=== PATIENT | female | born 1990 | race Caucasian/White ===

== ENCOUNTER 2017-09-29 10:31 | Emergency (ER) | payer MEDICAID, OTHER ==
[2017-09-29 10:50] VITALS: BP 140/80
--- NOTE | 2017-09-29 11:35 | UC ---
General HPI - HPI Summary HPI Summary: PT WITH 3 DAYS OF LEFT EAR PAIN - NO DRAINAGE OR HEARING LOSS. ALSO C/O SUBJECTIVE FEVER, CHILLS, OVERALL MALAISE. FEELS TIRED AND THIRSTY. IS URINATING A LOT BUT DENIES PAIN. HAS DM. TAKES METFORMIN 500MG DAILY. LAST A1C AROUND JUNE - NOT SURE WHAT IT WAS. DOES NOT CHECK SUGAR AT HOME. ATE A SMALL BOWL OF MAC AND CHEESE THIS MORNING - POC FINGER STICK GLUCOSE HERE AT IS 189 (3.5 HOURS AFTER EATING). PT HAS INTERMITTENT BLURRY ("WAVY") VISION. NO NAUSEA, CP OR SOB. 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 Hx Last Menstrual Period: 08/31/2017 Onset/Duration: Gradual Onset, Lasting Days, Still Present Timing: Constant Onset Severity: Moderate Current Severity: Moderate Pain Intensity: 6 - Allergy/Home Medications Allergies/Adverse Reactions: Allergies Allergy/AdvReac Type Severity Reaction Status Date / Time Ziprasidone [From Philip] Allergy Swelling Verified 09/29/17 10:37 Of Face,Lips,& Throat seasonal Allergy Itching Uncoded 09/29/17 10:37 PMH/Surg Hx/FS Hx/Imm Hx Endocrine History: Diabetes Psychological History: Anxiety, Depression, Bipolar Disorder Other History Of: Negative For: HIV, Hepatitis B, Hepatitis C - Surgical History Surgical History: Yes Surgery Procedure, Year, and Place: 2 past C-sections 2007 and 2009, tubal in 2011. - Family History Known Family History: Negative: Seizure Disorder, Blood Disorder - Social History Alcohol Use: None Substance Use Type: None Smoking Status (MU): Never Smoked Tobacco - Immunization History Most Recent Influenza Vaccination: none Most Recent Tetanus Shot: unable to recall Most Recent Pneumonia Vaccination: N/A Review of Systems Constitutional: Fever, Chills, Fatigue Eyes: Blurred Vision ENT: Ear Ache Cardiovascular: Negative Gastrointestinal: Negative Genitourinary: Negative Neurological: Other - DIZZY All Other Systems Reviewed And Are Negative: Yes Physical Exam Triage Information Reviewed: Yes Appearance: Well-Appearing, No Pain Distress, Well-Nourished, Obese Vital Signs: Initial Vital Signs Temp 96.6 F 01/12/18 10:39 Pulse 94 09/29/17 10:39 Resp 18 09/29/17 10:39 BP 140/80 09/29/17 10:39 Pulse Ox 98 09/29/17 10:39 Vital Signs Reviewed: Yes Eyes: Positive: Conjunctiva Clear ENT: Positive: Hearing grossly normal, Pharynx normal, TMs normal Neck: Positive: Supple, Nontender, No Lymphadenopathy Respiratory Exam: Normal Cardiovascular Exam: Normal Abdomen Description: Positive: Soft Musculoskeletal: Positive: No Edema Neurological: Positive: Alert Psychological: Positive: Normal Response To Family, Age Appropriate Behavior Skin: Negative: rashes Diagnostics - Laboratory Diagnostic Studies Completed/Ordered: POC FINGER STICK GLUCOSE 189. URINE DIP SP. GR. 1.020, 3+ BLOOD, TRACE KETONES, TRACE LYSED BLOOD Course/Dx - Differential Dx - Multi-Symptom Provider Diagnoses: UNCONTROLLED DM2 Discharge - Discharge Plan Condition: Stable Disposition: HOME Patient Education Materials: Type 2 Diabetes in Adults (ED) Referrals: Yakov Campbell MD [Medical Doctor] - 3 Days Additional Instructions: URINE TEST SHOWS SUGAR IN YOUR URINE WHICH IS CONSISTENT WITH UNCONTROLLED DIABETES. BLOOD TESTS TODAY INCLUDE CBC, CMP, TSH AND HBAIC. FOLLOW-UP WITH DR. CAMPBELL NEXT WEEK FOR MANAGEMENT. WATCH YOUR DIET. CHECK YOUR FASTING SUGAR IN THE MORNINGS AND KEEP A LOG. BRING THIS WITH YOU TO YOUR APPT. YOUR SUGAR TODAY WAS 189 - 3.5 HOURS AFTER BREAKFAST. YOU WILL NEED TO BE EVALUATED BY AN DIRECTOR MULTIPLE SCLEROSIS CENTER WELL TO LOOK FOR ANY DAMAGE TO YOUR EYES FROM THE DIABETES. GO TO THE ER WITHOUT FAIL IF YOU DEVELOP ANY WORSENING SYMPTOMS.
[2017-09-29 16:15] LABS: ABS Basophils 0 10^3/ul (0-0.2); ABS Eosinophils 0.1 10^3/ul (0-0.6); ABS Lymphocytes 2.5 10^3/ul (1.0-4.8); ABS Monocytes 0.7 10^3/ul (0-0.8); ABS Neutrophils 6.4 10^3/ul (1.5-7.7); ABS Nucleated RBC 0 10^3/ul; Hematocrit 40 % (35-47); Hemoglobin 13.4 g/dl (12.0-16.0); Lymphocyte % 25.5 % (25-47); Mean Corpuscular HGB Conc 34 g/dl (31-36); Mean Corpuscular Hemoglobin 29 pg (27-31); Mean Corpuscular Volume 86 fL (80-97); Mean Platelet Volume 9 um3 (7.4-10.4); Nucleated Red Blood Cells % 0; Platelet Count 252 10^3/ul (150-450); Red Blood Count 4.62 10^6/ul (4.0-5.4); Red Cell Distribution Width 13 % (10.5-15); White Blood Count 9.7 10^3/ul (3.5-10.8)
[2017-09-29 16:30] LABS: EGFR Non-African American 126.3 (>60)
--- NOTE | 2017-09-30 09:07 | UC ---
- Progress Note Progress Note: A1c 7.0 -- needs better control of diabetes -- advise diabetic diet and follow up with PCP this upcoming week labs show dehydration advise increase water intake rest of labs normal
== END 2017-09-29 12:08 | disposition home or self-care (01) ==
LOC: UCEAST 10:31
DX: E11.65 Type 2 diabetes mellitus with hyperglycemia (principal); H92.02 Otalgia, left ear; Z88.8 Allergy status to other drugs, medicaments and biological substances; Z91.048 Other nonmedicinal substance allergy status; Z79.84 Long term (current) use of oral hypoglycemic drugs
CPT/HCPCS: 36415; 80053; 81003; 83036; 84443; 85025; 99211; G0463

== ENCOUNTER 2018-10-29 19:18 | Emergency (ER) | payer OTHER ==
[2018-10-29 19:56] VITALS: BP 136/93
--- NOTE | 2018-10-29 20:41 | ED ---
Throat Pain/Nasal Congestion - HPI Summary HPI Summary: 28 yr old with two weeks of sore throat, nasal congestion, post nasal drip and worsening frontal sinus pressure. Symptoms are moderate. She states she has had a mild cough. She denies SOB. She denies fever. She states both ears are hurting. - History of Current Complaint Chief Complaint: UCGeneralIllness Time Seen by Provider: 10/29/18 20:33 - Allergies/Home Medications Allergies/Adverse Reactions: Allergies Allergy/AdvReac Type Severity Reaction Status Date / Time ziprasidone [From Philip] Allergy Swelling Verified 10/29/18 19:52 Of Face,Lips,& Throat seasonal Allergy Itching Uncoded 09/29/17 10:37 Home Medications: Home Medications Fluoxetine HCl [Prozac] 20 mg PO DAILY 10/29/18 [History Confirmed 10/29/18] Lurasidone(*) [Latuda] 60 mg PO DAILY 10/29/18 [History Confirmed 10/29/18] glipiZIDE [Glipizide] 5 mg PO DAILY 10/29/18 [History Confirmed 10/29/18] hydrOXYzine HCl [Hydroxyzine HCl] 10 mg PO Q6H PRN 10/29/18 [History Confirmed 10/29/18] PMH/Surg Hx/FS Hx/Imm Hx Endocrine/Hematology History: Reports: Hx Diabetes - type 2 Denies: Hx Thyroid Disease, Hx Anemia Cardiovascular History: Denies: Hx Congestive Heart Failure, Hx Deep Vein Thrombosis, Hx Hypertension , Hx Myocardial Infarction, Hx Pacemaker/ICD Respiratory History: Denies: Hx Asthma, Hx Chronic Obstructive Pulmonary Disease (COPD), Hx Lung Cancer GI History: Denies: Hx Gall Bladder Disease, Hx Gastrointestinal Bleed, Hx Ulcer, Hx Urosepsis History: Denies: Hx Kidney Stones, Hx Renal Disease Sensory History: Reports: Hx Contacts or Glasses Denies: Hx Cataracts, Hx Eye Injury, Hx Eye Prosthesis, Hx Glaucoma, Hx Legally Blind, Hx Macular Degeneration, Hx Vision Problem, Hx Deafness, Hx Hearing Aid, Hx Hearing Problem, Other Sensory Impairments Opthamlomology History: Reports: Hx Contacts or Glasses Denies: Hx Cataracts, Hx Eye Injury, Hx Eye Prosthesis, Hx Glaucoma, Hx Legally Blind, Hx Macular Degeneration, Hx Vision Problem, Other Sensory Impairments Neurological History: Reports: Hx Developmental Delay Denies: Hx Dementia, Hx Headaches, Hx Migraine, Hx Nerve Disease, Hx Seizures , Hx Spinal Cord Injury, Hx Transient Ischemic Attacks (TIA), Other Neuro Impairments/Disorders Psychiatric History: Reports: Hx Anxiety, Hx Eating Disorder - Binge eating disorder, Hx Depression, Hx Panic Disorder, Hx Post Traumatic Stress Disorder, Hx Community Mental Health Tx, Hx Bipolar Disorder, Hx Suicide Attempt - od attempt age 19, Other Psychiatric Issues/Disorders Denies: Hx Attention Deficit Hyperactivity Disorder, Hx Inpatient Treatment, Hx Schizophrenia, Hx of Violent Episodes Against Others, Hx Substance Abuse - Cancer History Hx Chemotherapy: No Hx Radiation Therapy: No Hx Palliative Cancer Treatment: No - Surgical History Surgery Procedure, Year, and Place: 2 past C-sections 2007 and 2009, tubal in 2012. Hx Anesthesia Reactions: No - Immunization History Date of Tetanus Vaccine: Unknown Date of Influenza Vaccine: Never Infectious Disease History: No Infectious Disease History: Denies: Hx Clostridium Difficile, Hx Hepatitis, Hx Human Immunodeficiency Virus (HIV), Hx of Known/Suspected MRSA, Hx Shingles, Hx Tuberculosis, Hx Known/ Suspected VRE, Hx Known/Suspected VRSA, History Other Infectious Disease, Traveled Outside the in Last 30 Days - Family History Known Family History: Positive: None - denies Negative: Seizure Disorder, Blood Disorder - Social History Occupation: Unemployed Alcohol Use: None Substance Use Type: Reports: None Smoking Status (MU): Never Smoked Tobacco Review of Systems Constitutional: Negative Positive: Sore Throat, Ear Ache, Nasal Discharge Positive: Cough All Other Systems Reviewed And Are Negative: Yes Physical Exam Triage Information Reviewed: Yes Vital Signs On Initial Exam: Initial Vitals Temp Pulse Resp BP Pulse Ox 97.2 F 94 16 136/93 99 10/29/18 19:50 10/29/18 19:50 10/29/18 19:50 10/29/18 19:50 10/29/18 19:50 Vital Signs Reviewed: Yes Appearance: Positive: Well-Appearing, No Pain Distress Skin: Positive: Warm, Skin Color Reflects Adequate Perfusion Head/Face: Positive: Normal Head/Face Inspection Eyes: Positive: EOMI ENT: Positive: Pharyngeal erythema, Nasal congestion, Nasal drainage, TM dull - bilateral, TM red, Uvula midline Neck: Positive: Nontender Respiratory/Lung Sounds: Positive: Clear to Auscultation, Breath Sounds Present Cardiovascular: Positive: RRR. Negative: Murmur Abdomen Description: Negative: Distended Musculoskeletal: Positive: Strength/ROM Intact Neurological: Positive: Sensory/Motor Intact, Alert, Oriented to Person Place, Time, CN Intact II-III Psychiatric: Positive: Normal - [place] Coma Scale Best Eye Response: 4 - Spontaneous Best Motor Response: 6 - Obeys Commands Best Verbal Response: 5 - Oriented Coma Scale Total: 15 Diagnostics - Vital Signs Vital Signs Temp Pulse Resp BP Pulse Ox 10/29/18 19:50 97.2 F 94 16 136/93 99 - Laboratory Lab Statement: Any lab studies that have been ordered have been reviewed, and results considered in the medical decision making process. EENT Course/Dx - Course Course Of Treatment: 28 yr old with otitis media, sinusitis. Rx Augmentin. - Diagnoses Provider Diagnoses: Otitis media Discharge - Sign-Out/Discharge Documenting (check all that apply): Patient Departure All imaging exams completed and their final reports reviewed: No Studies - Discharge Plan Condition: Good Disposition: HOME Prescriptions: Amoxicillin/Clavulanate TAB* [Augmentin TAB 875*] 875 mg PO BID #20 tab Patient Education Materials: Ear Infection (ED), Sinusitis (ED), Hypertension ( ED) Referrals: Elias Baker DO [Primary Care Provider] - 2 Days - Billing Disposition and Condition Condition: GOOD Disposition: Home
== END 2018-10-29 20:46 | disposition home or self-care (01) ==
LOC: UCCORT 19:18
DX: H66.93 Otitis media, unspecified, bilateral (principal); J32.9 Chronic sinusitis, unspecified; E11.9 Type 2 diabetes mellitus without complications; Z88.8 Allergy status to other drugs, medicaments and biological substances; Z91.09 Other allergy status, other than to drugs and biological substances; Z79.84 Long term (current) use of oral hypoglycemic drugs
CPT/HCPCS: 99212; G0463

== ENCOUNTER 2019-06-30 16:09 | Emergency (ER) | payer OTHER ==
--- OUTSIDE RECORDS SUMMARY | 2019-06-30 16:16 | XMS REPORT | Continuity of Care Document ---
:1990 External Reference #:[id number] Author Name Paco Garcia M.D. Address [address] [place] [address] Care Team Providers Name Role Phone Elias Baker D.O. - Family Medicine Care Team Information [facility] [phone] Problems Active Problems Provider Date Type 2 diabetes mellitus Paco Garcia M.D. Onset: 06/13/2019 Bipolar I disorder Paco Garcia M.D. Onset: 06/13/2019 Posttraumatic stress disorder Paco Garcia M.D. Onset: 06/13/2019 H/O: depression Paco Garcia M.D. Onset: 06/13/2019 Anxiety disorder Paco Garcia M.D. Onset: 06/13/2019 Social History Type Date Description Comments Sex Unknown ETOH Use Denies alcohol use Tobacco Use Start: Unknown Patient has never smoked Recreational Drug Use Denies Drug Use Smoking Status Reviewed: 06/13/19 Patient has never smoked Allergies, Adverse Reactions, Alerts Active Allergies Reaction Severity Comments Date Valproic Acid 06/13/2019 Medications Active Medications SIG Qnty Indications Ordering Provider Date Glipizide Zuleyka Kern 5mg Tablets Diclofenac Sodium Unknown 50mg Tablets Zuleyka Ramey 40mg Tablets Trulicity Imject 1.5 MG Per Unknown 1.5mg/0.5ML Week For Diabetes Solution Pen-Inject Managment Terbinafine HCL Zuleyka Kenr 1% Cream Clotrimazole LiskZuleyka 1% Cream SM Lice Killing Apply Shampoo Unknown Maximum Strength Liberally To Dry 0.33-4% Hair Allow To Shampoo Bed Worker Hair For 10 Minutes Then Lather With A Little Warm Water Then Rinse Amitriptyline HCL Zuleyka Kern 25mg Tablets Metformin HCL Take 1 Tablet By Unknown 500mg Mouth Twice Daily Tablets Before Breakfast And Supper Hydroxyzine HCL Take 1 3 Tablets Unknown 10mg By Mouth as Needed Tablets For Anxiety Depo-Provera Unknown 150mg/ml Katie Immunizations Description No Information Available Vital Signs Description No Information Available Results Description No Information Available Procedures Description No Information Available Medical Devices Description No Information Available Encounters Description No Information Available Assessments Date Code Description Provider 06/13/2019 E11.9 Type 2 diabetes mellitus without Paco Garcia M.D. complications Plan of Treatment 06/13/2019 - Paco Garcia M.D.E11.9 Type 2 diabetes mellitus without complicationsComments:Smoking can increase the risk of developing or worsening any eye related disease, as well as affect your overall health. If you are a smoker, we strongly recommend that you quit.If you are not a smoker, we strongly recommend that you do not start. You have diabetes. I do not detect any changes in both of your retinas from diabetes at this time. Proper control of your diabetes is important for the health of your eyes. Changes in your eyes from diabetes can happen without symptoms, so it is important that you have your eyes examined.Follow up:1 Year Follow Up DFE You can expect to have your eyes dilated at your next visit. If Dr. Garcia orders any additional testing, it may require extra time. We recommend that you bring sunglasses, as dilation drops often make you light sensitive until they wear off. We always recommend you bring someone to drive you home if you are uncomfortable driving with your eyes dilated. If you have any questions before your next visit, feel free to call our office at . Functional Status Description No Information Available Mental Status Description No Information Available Referrals Description No Information Available
--- OUTSIDE RECORDS SUMMARY | 2019-06-30 16:16 | XMS REPORT | Continuity of Care Document ---
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 Problems Active Problems Provider Date Adjustment disorder with mixed emotional Briseida Beaver Onset: 2018 features Derangement of knee Briseida Beaver Onset: 05/28/2019 Long-term current use of drug therapy Briseida Beaver Onset: 05/28/2019 Bipolar I disorder, most recent episode Briseida Beaver Onset: 05/28/2019 hypomanic Type II diabetes mellitus uncontrolled Briseida Beaver Onset: 05/28/2019 Social History Type Date Description Comments Sex Unknown Tobacco Use Start: Unknown Denies Cigarette Use ETOH Use Denies alcohol use Recreational Drug Use Denies Drug Use Tobacco Use Start: Unknown Non Smoker Smoking Status Reviewed: 02/28/19 Non Smoker Enjoy Exercising Enjoys exercising Sun Exposure Uses sunscreen Seat Belt/Car Seat always uses seat belt Guns in Home No Smoke Alarms Yes smoke alarm Allergies, Adverse Reactions, Alerts Active Allergies Reaction Severity Comments Date Depakote tongue swelling 03/05/2018 Medications Active Medications SIG Qnty Indications Ordering Date Provider Trulicity 1.5 mg per week 1.5ml E11.65 Rivera aTnner, 05/28/2019 1.5mg/0.5ML for management of M.D. Solution Pen-Inject diabetes Diclofenac Sodium 1 by mouth twice a 60tabs M22.2x1 Rivera Tanner, 05/28 day for knee pain M.D. 75mg Tablets DR Kelsy Paul Killing Apply Rid shampoo 236ml Rivera Tanner, 05/23/2019 Shampoo liberally to dry M.D. 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 control Latuda 1 qhs 30tabs F31.0 Rivera Tanner, 02/28/2019 40mg Tablets M.D. F43.23 Triamcinolone apply to affected 15gm L30.1 Rivera Tanner, 12/13/2018 Acetonide areas on legs for the M.D. 0.1% Cream rash, 2 times a day, discontinue when it improves One Touch Test Strips test 2 times a day 100units E11.65 Rivera Tanner, 10/15/2018 M.D. Box One Touch Lancets Test blood sugar 1-2 100units E11.65 Rivera Tanner, Box times a day M.D. Onetouch Ultra test machine as 1units E11.65 Rivera Tanner, 10/15/2018 Control directed M.D. Solution Glipizide 1 every morning for 30tabs E11.65 Rivera Tanner, 10/15/2018 5mg Tablets diabetes control M.D. Terbinafine HCL use two times a day 60units B35.3 Rivera Tanner, 2018 1% on feet x at least 3 M.D. Cream months Clotrimazole apply externally to 45gm B35.4 Rivera Tanner, 09/24/2018 1% Cream affected areas twice M.D. a day for 2 weeks or until rash has resolved: then cont 2 day after rash resolves Depo-Provera inject 150 mg 1ml Rivera Tanner, 06/22/2018 150mg/ml intramuscular once M.D. Suspension every 3 months, injection will be done by [facility] medicine Wrist Splints For CTS Wear each arm at 2units G56.03 Rivera Tanner, night M.D. Amitriptyline HCL Take 2 Tablets By 60tabs G43.C0 Rivera Tanner, 2017 25mg Mouth AT Bedtime For M.D. Tablets Headaches And Pain Metformin HCL Take 1 Tablet By 60tabs E11.65 Rivera Tanner, 03/05/2018 500mg Mouth Twice Daily M.D. Tablets Before Breakfast And Supper Hydroxyzine HCL 1-3 tabs by mouth as 90tabs Rivera Tanner, 03/04/2018 10mg needed anxiety M.D. Tablets History Medications Trulicity 0.75 mg once 1ml E11.65 Rivera Tanner, 05/17/2019 - weekly x 2 weeks, M.D. 05/28/2019 0.75mg/0.5ML if tolerated, Solution Pen-Inject increase to 1.5 mg once a week Diclofenac Sodium apply 4 g of gel 100gm M25.569 Elias Baker, 2018 - 1% to knees 2 times D.O. 05/28/2019 Gel daily (maximum: 16 g per joint per day) for pain Medications Administered in Office Medication SIG Qnty Indications Ordering Provider Date Depo Provera Injection Zuleyka Escalante P.ARobert 05/28/2019 Injection SC/Im Injections Zuleyka Escalante P.Cindy 05/28/2019 Injection Depo Provera Injection Nurse's Schedule 03/06/2019 Injection SC/Im Injections Nurse's Schedule 03/06/2019 Injection SC/Im Injections Zuleyka Escalante P.Cindy 12/13/2018 Injection SC/Im Injections Zuleyka Escalante P.ARobert 09/24/2018 Injection SC/Im Injections Zuleyka Escalante P.ARobert 06/22/2018 Injection Immunizations CPT Code Status Date Vaccine Lot # [id number] Given 05/28/2019 Influenza Virus Vaccine, Quadrivalent, Split, [id number] Preservative Free [id number] Given 06/22/2018 Influenza Virus Vaccine, Quadrivalent, Split, [id number] Preservative Free Vital Signs Date Vital Result Comment 05/28/2019 9:40am BP Systolic 106 mmHg BP Diastolic 72 mmHg Weight 281.00 lb 05/17/2019 9:28am BP Systolic 134 mmHg BP Diastolic 80 mmHg Height 65.5 inches 5'5.50" Weight 288.00 lb BMI (Body Mass Index) 47.2 kg/m2 Results Test Date Facility Test Result H/L Range Note Laboratory test finding 05/17/2019 In House Hemoglobin A1c 8.1 Laboratory test finding 02/28/2019 In House Hemoglobin A1c 7.1 Laboratory test finding 12/13/2018 In House Hemoglobin A1c 7.2 Procedures Date Code Description Status 05/28/2019 71348 SC/Im Injections Completed 05/17/2019 56945 Brief Emotional/Behav Assessment W/ Scoring Doc Per Completed Standard Inst 03/06/2019 28665 SC/Im Injections Completed 12/13/2018 57239 SC/Im Injections Completed 09/24/2018 [id number] Diabetic Foot Exam Completed Medical Devices Description No Information Available Encounters Type Date Location Provider Dx Diagnosis Office Visit 05/28/2019 Main Office Zuleyka Escalante, E11.65 Type 2 diabetes 9:20a P.A. 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 mellitus with hyperglycemia B35.3 Tinea pedis B35.4 Tinea corporis L30.1 Dyshidrosis [pompholyx] Z30.42 Encounter for surveillance of injectable contraceptive Assessments Date Code Description Provider 05/28/2019 E11.65 Type 2 diabetes mellitus with hyperglycemia Zuleyka [place] , P.A. 05/28/2019 F31.0 Bipolar disorder, current episode hypomanic Zuleyka [place], P.A. 05/28/2019 Z79.84 care home (current) use of oral hypoglycemic Zuleyka [place] , P.A. drugs 05/28/2019 M22.2x1 Bilateral knee pain Zuleyka [place], P.A. 05/28/2019 F43.23 Adjustment disorder with mixed anxiety and Zuleyka [place], P.A. depressed mood 05/28/2019 Z23 Encounter for immunization Zuleyka [place], P.A. 05/28/2019 E66.9 Obesity, unspecified Zuleyka [place], P.A. 05/28/2019 Z30.42 Encounter for surveillance of injectable Zuleyka [place], P.A. contraceptive 05/28/2019 Z71.3 Dietary counseling and surveillance Zuleyka [place], P.A. 05/28/2019 V25.09 Contraceptive Management Other Zuleyka [place], P.A. 05/17/2019 E11.65 Type 2 diabetes mellitus with hyperglycemia Zuleyka [place] , P.A. 05/17/2019 F31.0 Bipolar disorder, current episode hypomanic Zuleyka [place], P.A. 05/17/2019 G89.4 Chronic pain syndrome Zuleyka [place], P.A. 05/17/2019 F43.23 Adjustment disorder with mixed anxiety and Zuleyka [place], P.A. depressed mood 05/17/2019 Z79.84 care home (current) use of oral hypoglycemic Zuleyka [place] , P.A. drugs 05/17/2019 Z13.31 Encounter for screening for depression Zuleyka [place], P.A. 05/17/2019 Z68.42 Body mass index (BMI) 45.0-49.9, adult Zuleyka [place], P.A. 03/06/2019 Z30.013 Encounter for initial prescription of Nurse's Schedule injectable contracepti 02/28/2019 E11.65 Type 2 diabetes mellitus with hyperglycemia Zuleyka Escalante , P.A. 02/28/2019 F31.0 Bipolar disorder, current episode hypomanic Zuleyka Escalante, P.A. 02/28/2019 G89.4 Chronic pain syndrome Zuleyka Escalante, P.A. 02/28/2019 F43.23 Adjustment disorder with mixed anxiety and Zuleyka Escalante, P.A. depressed mood 02/28/2019 Z79.84 care home (current) use of oral hypoglycemic Zuleykamane Escalante , P.A. drugs 02/28/2019 Z79.899 Other meterman (current) drug therapy Zuleyka Escalante, P.A. 02/28/2019 M22.2x1 Bilateral knee pain Zuleyka Escalante, P.A. 02/28/2019 R10.84 Generalized abdominal pain Zuleyka Escalante, P.A. 12/13/2018 E11.65 Type 2 diabetes mellitus with hyperglycemia Zuleyka Escalante , P.A. 12/13/2018 B35.3 Tinea pedis Zuleyka Alemanle, P.A. 12/13/2018 B35.4 Tinea corporis Zuleyka [place], P.A. 12/13/2018 L30.1 Dyshidrosis [pompholyx] Zuleyka Escalante, P.A. 12/13/2018 Z30.42 Encounter for surveillance of injectable Zuelyka Escalante P.A. contraceptive Plan of Treatment Future Appointment(s):07/12/2019 8:00 am - Zuleyka Escalante P.ARobert at [id number] - Zuleyka Escalante P.A.E11.65 Type 2 diabetes mellitus with hyperglycemiaNew Medication:Needle For Trulicity Pen - Use 1 time a week for diabetes controlTrulicity 0.75 mg/0.5ML - 0.75 mg once weekly x 2 weeks, if tolerated, increase to 1.5 mg once a weekComments:A1C: 8.1% counseled on how to use the Trulicity pen and that would only have to use one time a week. Reviewed web page for the med and a video on the use of the pen. 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
[2019-06-30 16:25] VITALS: BP 143/85
--- NOTE | 2019-06-30 16:38 | UC ---
Abdominal Pain Female HPI - HPI Summary HPI Summary: 29-year-old female, [id number] diabetic who started having vomiting and diarrhea since last evening. She stopped vomiting approximate 2 AM and had a total of vomiting 5. She states the diarrhea has continued however it's been approximately 8 times since it started. She denies any feeling of lightheadedness or feeling like she going to pass out. She denies any urinary symptoms. No fever or chills. She has some upper abdominal soreness which she thinks is from vomiting. She has been able to take liquids and some food and retain them. - History of Current Complaint Chief Complaint: UCAbdominalPain Stated Complaint: ABDOMINAL/LOW BACK PAIN/VOMITING Time Seen by Provider: 06/30/19 16:22 Hx Obtained From: Patient Hx Last Menstrual Period: Depo ?: No Onset/Duration: Sudden Onset Severity Initially: Moderate Severity Currently: Mild Pain Intensity: 7 Location: Epigastric Radiates: No Character: Aching, Dull Aggravating Factor(s): Nothing Alleviating Factor(s): Nothing Associated Signs and Symptoms: Positive: Nausea, Vomiting, Diarrhea Allergies/Adverse Reactions: Allergies Allergy/AdvReac Type Severity Reaction Status Date / Time divalproex sodium Allergy Swelling Verified 06/30/19 16:25 [From Depakote] Of Face,Lips,& Throat ziprasidone [From Geodon] Allergy Swelling Verified 10/29/18 19:52 Of Face,Lips,& Throat seasonal Allergy Itching Uncoded 09/29/17 10:37 Home Medications: Home Medications Amitriptyline TAB* [Elavil TAB*] 25 mg PO BEDTIME 06/30/19 [History Confirmed ] Diclofenac Sodium 75 mg PO BID 06/30/19 [History Confirmed 06/30/19] Dulaglutide [Trulicity] 1.5 mg SQ WEEKLY 06/30/19 [History Confirmed 06/30/19] Medroxyprogesterone Acetate [Depo-Provera Contraceptiv] 150 mg IM SEE INSTRUCTIONS 06/30/19 [History Confirmed 06/30/19] hydrOXYzine HCl [Hydroxyzine HCl] 10 mg PO DAILY 06/30/19 [History Confirmed ] PMH/Surg Hx/FS Hx/Imm Hx Previously Healthy: Yes Endocrine History: Diabetes Psychological History: Anxiety, Bipolar Disorder Other History Of: Negative For: HIV, Hepatitis B, Hepatitis C - Surgical History Surgical History: Yes Surgery Procedure, Year, and Place: 2 past C-sections 2007 and 2009, tubal in 2012. - Family History Known Family History: Positive: None - denies Negative: Seizure Disorder, Blood Disorder - Social History Alcohol Use: None Substance Use Type: None Smoking Status (MU): Never Smoked Tobacco - Immunization History Most Recent Influenza Vaccination: none Most Recent Tetanus Shot: unable to recall Most Recent Pneumonia Vaccination: N/A Review of Systems All Other Systems Reviewed And Are Negative: Yes Gastrointestinal: Positive: Abdominal Pain - She describes abdominal pain more as abdominal soreness in the epigastric area., Vomiting, Diarrhea, Nausea Genitourinary: Positive: Negative Is Patient Immunocompromised?: No Physical Exam Triage Information Reviewed: Yes Appearance: Well-Appearing, No Pain Distress, Well-Nourished Vital Signs: Initial Vital Signs Temp 97.7 F 06/30/19 16:17 Pulse 111 06/30/19 16:17 Resp 16 06/30/19 16:17 BP 143/85 06/30/19 16:17 Pulse Ox 99 06/30/19 16:17 Vital Signs Reviewed: Yes Eyes: Positive: Conjunctiva Clear ENT: Positive: Hearing grossly normal, Pharynx normal, TMs normal, Uvula midline Neck: Positive: Supple, Nontender, No Lymphadenopathy Respiratory: Positive: Lungs clear, Normal breath sounds, No respiratory distress, No accessory muscle use Cardiovascular: Positive: RRR, No Murmur, Pulses Normal, Brisk Capillary Refill Abdomen Description: Positive: Nontender, No Organomegaly, Soft. Negative: CVA Tenderness (R), CVA Tenderness (L), Distended, Guarding, Hepatomegaly, McBurney' s Point Tenderness, Splenomegaly Bowel Sounds: Positive: Present Musculoskeletal Exam: Normal Neurological Exam: Normal Psychological Exam: Normal Skin Exam: Normal Abd Pain Female Course/Dx - Course Course Of Treatment: The patient states she's feeling much better today and is been able to retain fluids and food. I'm going to give her a prescription for Zofran for nausea. She is to continue increasing her fluid intake. She is to go to the emergency room if any increase in the abdominal discomfort, continued vomiting or any worsening of symptoms. She's follow-up with her primary care provider if no improvement in 2 or 3 days. - Differential Dx/Diagnosis Provider Diagnosis: Vomiting, Diarrhea Discharge ED - Sign-Out/Discharge Documenting (check all that apply): Patient Departure All imaging exams completed and their final reports reviewed: No Studies - Discharge Plan Condition: Good Disposition: HOME Prescriptions: Ondansetron TAB* [Zofran 4 MG Tab*] 4 mg PO Q6H PRN #15 tab PRN Reason: Nausea Patient Education Materials: Acute Nausea and Vomiting (ED) Referrals: Elias Baker DO [Primary Care Provider] - Additional Instructions: Clear liquids today, soup and crackers later today when you have no further vomiting then gradually increase to your regular diet. Avoid spicy or fatty foods today. Definite follow up with your primary care provider if no improvement in 1 day. Go to the ER if you feel like you are going to pass out or if you feel lightheaded or dizzy. - Billing Disposition and Condition Condition: GOOD Disposition: Home
== END 2019-06-30 17:00 | disposition home or self-care (01) ==
LOC: UCCORT 16:09
DX: R19.7 Diarrhea, unspecified (principal); R11.2 Nausea with vomiting, unspecified; E11.9 Type 2 diabetes mellitus without complications; F41.9 Anxiety disorder, unspecified; R10.9 Unspecified abdominal pain; Z79.899 Other long term (current) drug therapy
CPT/HCPCS: 81003; 84702; 99212; G0463

== ENCOUNTER 2019-10-30 18:12 | Emergency (ER) | payer OTHER ==
--- OUTSIDE RECORDS SUMMARY | 2019-10-30 19:07 | XMS REPORT | Continuity of Care Document ---
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 Onset: 07/30/2019 Obesity Briseida Beaver Onset: 07/30/2019 Social History Type Date Description Comments Sex Unknown Tobacco Use Reviewed: 07/03/19 Denies Cigarette Use Smoking Status Reviewed: 09/13/19 Denies Cigarette Use ETOH Use Denies alcohol use Recreational Drug Use Denies Drug Use Tobacco Use Start: Unknown Non Smoker Enjoy Exercising Enjoys exercising Sun Exposure Uses sunscreen Seat Belt/Car Seat always uses seat belt Guns in Home No Smoke Alarms Yes smoke alarm Allergies, Adverse Reactions, Alerts Active Allergies Reaction Severity Comments Date Depakote tongue swelling 03/05/2018 Medications Active Medications SIG Qnty Indications Ordering Date Provider Venlafaxine HCL 2 by mouth every Unknown 09/12/2019 day 37.5mg Tablets Famotidine take one tablet 60tabs Rivera Tanner, 07/08/2019 20mg before meals, by M.DRobert Tablets mouth twice a day for acid reflux Omeprazole Take 1 Capsule By 30caps R10.13 Rivera Tanner, 07/03/2019 40mg Mouth Every Day For M.D. Capsules DR Dulce Maria Angel For Pain; appointment needed before next refill Sucralfate take 1 tablet by 60tabs R10.13 Rivera Tanner, 07/03/2019 1gm mouth before meals M.D. Tablets and at bedtime for abdominal pain Dicyclomine HCL Take 1 Capsule By R10.13 Unknown 07/01/2019 Mouth 4 Times Daily 10mg Capsules as needed for belly pain Ondansetron HCL Take 1 Tablet By R11.0 Unknown 07/01/2019 4mg Mouth Every 6 Hours Tablets as Needed For Nausea Trulicity 1.5 mg per week for 1.5ml E11.65 Rivera Tanner, 05/28/2019 management of M.D. 1.5mg/0.5ML diabetes Solution Pen-Inject Diclofenac Sodium 1 by mouth twice a 60tabs M22.2x1 Rivera Tanner, 05/28 day for knee pain M.D. 75mg Tablets DR Weathers For Use 1 time a week 50units E11.65 Rivera Tanner, 05/17/2019 Trulicity Pen for diabetes M.D. control Latuda 1 qhs 30tabs F31.0 Rivera Tanner, 02/28/2019 40mg Tablets M.D. F43.23 Triamcinolone apply to affected 15gm L30.1 Rivera Tanner, 12/13/2018 Acetonide areas on legs for the M.D. 0.1% Cream rash, 2 times a day, discontinue when it improves One Touch Test Strips test 2 times a day 100units E11.65 Rivera Tanner, 10/15/2018 M.D. Box One Touch Lancets test blood sugar 1-2 100units E11.65 Rivera Tanner, [...] 3 months, injection will be done by [facility] Wrist Splints For CTS Wear each arm at 2units G56.03 Rivera Tanner, night M.D. Amitriptyline HCL Take 2 Tablets By 60tabs G43.C0 Rivera Tanner, 2017 25mg Mouth AT Bedtime For M.D. Tablets Headache And Pain Metformin HCL Take 1 Tablet By 60tabs E11.65 Rivera Tanner, 03/05/2018 500mg Mouth One time a day M.D. Tablets Hydroxyzine HCL 1-3 tabs by mouth as 90tabs Rivera Tanner, 03/04/2018 10mg needed anxiety M.D. 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 07/08/2019 75mg a day Tablets Rid Lice Killing Apply Rid shampoo 236ml Rivera Tanner, 05/23/2019 - Shampoo liberally to dry M.D. 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 05/28/2019 0.75mg/0.5ML if tolerated, Solution Pen-Inject increase to 1.5 mg once a week Medications Administered in Office Medication SIG Qnty Indications Ordering Provider Date SC/Im Injections Nurse's Schedule 08/27/2019 Injection SC/Im Injections Briseida Beaver 05/28/2019 Injection Depo Provera Injection Nurse's Schedule 03/06/2019 Injection SC/Im Injections Nurse's Schedule 03/06/2019 Injection SC/Im Injections Briseida Beaver 12/13/2018 Injection SC/Im Injections Briseida Beaver 09/24/2018 Injection SC/Im Injections Briseida Beaver 06/22/2018 Injection Immunizations CPT Code Status Date Vaccine Lot # [id number] Given 05/28/2019 Influenza Virus Vaccine, Quadrivalent, Split, [id number] Preservative Free [id number] Given 06/22/2018 Influenza Virus Vaccine, Quadrivalent, Split, [id number] Preservative Free Vital Signs Date Vital Result Comment 09/13/2019 10:45am BP Systolic 114 mmHg BP Diastolic 62 mmHg Height 65 inches 5'5" Weight 282.00 lb BMI (Body Mass Index) 46.9 kg/m2 BP Systolic Sitting Left Arm 98 mmHg lying down BP Diastolic Sitting Left Arm 76 mmHg lying down BP Systolic Lying Down Resting Right Arm 126 mmHg sitting BP Diastolic Lying Down Resting Right Arm 64 mmHg sitting BP Systolic Sitting Resting Right Arm 132 mmHg standing BP Diastolic Sitting Resting Right Arm 76 mmHg standing 07/03/2019 5:22pm BP Systolic 112 mmHg BP Diastolic 84 mmHg Body Temperature 98.6 F Weight 284.00 lb Results Test Acquired Facility Test Result H/L Range Note Date Laboratory 09/13/2019 [facility] Cytology <pending> test finding [phone] Laboratory 09/13/2019 In House Hemoglobin 7.0% test finding A1c Stool Occult 07/06/2019 [facility] Stool Occult SEE RESULT 1 Blood Diag [phone] Blood, Diag BELOW Laboratory 07/06/2019 [facility] Helico Pylori Negative Negative 2 test finding [phone] Antigen- Stool Laboratory 06/30/2019 [facility] Point of Care 208 mg/dL High 70-100 3 test finding [phone] Glucose Laboratory 06/30/2019 [facility] Poc Negative Negative 4 test finding [phone] , Urine Poc Urinalysis 06/30/2019 [facility] Poc Glucose, 2+ Abnormal Negative [phone] Urine Poc Bilirubin, Urine Negative Negative Poc Ketone, Urine Negative Negative Poc Specific [place], Urine 1.020 Normal 1.010-1.030 Poc Blood, Urine Trace-intact Abnormal Negative Poc pH, Urine 5.5 Normal 5-9 Poc Protein, Urine Negative Negative Poc Urobilinogen, Urine 0.2 Negative Poc Nitrite, Urine Negative Negative Poc Leukocytes, Urine Negative Negative Poc Color, Urine Yellow Poc Clarity, Urine Clear 5 Laboratory test finding 05/17/2019 In House Hemoglobin A1c 8.1 1 SEE RESULT BELOW Name: ROSALBA MORTENSEN : [address]: Zuleyka JONES Acct: [id number] Unit: [id number] AGE: 29 Location: [facility] Re07/06/19 SEX: F Status: REG REF SPEC: [id number] RHINA: 07/06/19 [facility] DR: Zuleyka JONES REQ: [id number] RECD: 07/08/19 STATUS: COMP _ SOURCE: STOOL SPDESC: ORDERED: Occult Bl, Diag COMMENTS: [id number] Procedure Result Reported Site Stool Occult Blood (1) Final 07/08/19- 2033 ML Stool Occult Blood Negative Collection Date (1) 07/06/19 Stool Occult Blood (2) Final 07/08/19- 2033 ML Stool Occult Blood Negative Collection Date (2) 07/06/19 Stool Occult Blood (3) Final 07/08/19- 2033 ML Stool Occult Blood Negative Collection Date (3) 07/06/19 * ML - Main Lab . END OF REPORT DEPARTMENT OF PATHOLOGY, [address] [place] [address] Eduar Zuleta M.D. Director [facility] # [id number] 2 Test Performed by: [place] [address] Wastewater Treatment Supervisor: Dhiraj Arevalo M.D. Ph.D.; CLIA# [id number] 3 Administrative Services Manager: [id number] 4 Administrative Services Manager: [id number] Test Disclaimer: Positive bacteria, red blood cells, white blood cells, early , low specific gravity, and other factors may cause false positive or negative results. It is recommended to retest unexpected and borderline results with a serum test when applicable. If is still suspected, please repeat test after 48 to 72 hours. 5 Administrative Services Manager: [id number] Procedures Date Code Description Status 09/13/2019 42804 Electrocardiogram Complete Completed 08/27/2019 63001 SC/Im Injections Completed 06/13/2019 124778189 Diabetic Retinal Eye Exam Completed 05/28/2019 56446 SC/Im Injections Completed 05/17/2019 82998 Brief Emotional/Behav Assessment W/ Scoring Doc Per Completed Standard Inst 09/24/2018 [id number] Diabetic Foot Exam Completed Medical Devices Description No Information Available Encounters Type Date Location Provider Dx Diagnosis Office Visit 09/13/2019 Main Office Zuleyka Escalante, E11.65 Type 2 diabetes 11:00a P.A. mellitus with hyperglycemia R07.89 Other chest pain R42 Dizziness and giddiness Z68.42 Body mass index (BMI) 45.0-49.9, adult Z00.01 Encounter for general adult medical exam w abnormal findings Z12.39 Encounter for oth screening for malignant neoplasm of breast Z12.4 Encounter for screening for malignant neoplasm of cervix Office Visit 08/27/2019 2:15p Main Office Nurse's Z30.42 Encounter for Schedule surveillance of injectable contraceptive Office Visit 07/03/2019 4:45p Main Office Ciro R10.13 Epigastric pain Herrera Stafford R11.0 Nausea E11.65 Type 2 diabetes mellitus with hyperglycemia M22.2x1 Patellofemoral disorders, right knee R19.7 Diarrhea, unspecified Office Visit 05/28/2019 9:20a Main Office Zuleyka Escalante, E11.65 Type 2 diabetes P.A. 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 09/13/2019 R07.89 Other chest pain Zuleyka Arcanum, P.A. 09/13/2019 R42 Dizziness and giddiness Zuleyka Arcanum, P.A. 09/13/2019 Z68.42 Body mass index (BMI) 45.0-49.9, adult Zuleykamane Alemanle, P.A. 09/13/2019 Z00.01 Encounter for general adult medical Zuleyka Escalante, P.A. examination with abnormal findings 09/13/2019 Z12.39 Encounter for other screening for malignant Zuleyka Arcanum , P.A. neoplasm of breast 09/13/2019 Z12.4 Encounter for screening for malignant Zulyekamane Alemanle, P.A. neoplasm of cervix 08/27/2019 Z30.42 Encounter for surveillance of injectable Nurse's Schedule contraceptive 07/03/2019 R10.13 Epigastric pain Rivera Tanner M.D. 07/03/2019 R11.0 Nausea Rivera Tanner M.D. 07/03/2019 E11.65 Type 2 diabetes mellitus with hyperglycemia Rivera Tanner M.D. 07/03/2019 M22.2x1 Bilateral knee pain Rivera Tanner M.D. 07/03/2019 R19.7 Diarrhea, unspecified Rivera Tanner M.D. 05/28/2019 E11.65 Type 2 diabetes mellitus with hyperglycemia Zuleyka Arcanum , P.A. 05/28/2019 F31.0 Bipolar disorder, current episode hypomanic Zuleyka Escalante, P.A. 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 drugs 05/28/2019 M22.2x1 Bilateral knee pain Zuleyka Arcanum, P.A. 05/28/2019 F43.23 Adjustment disorder with mixed anxiety and Zuleyka Arcanum, P.A. depressed mood 05/28/2019 Z23 Encounter for immunization Zuleyka Arcanum, P.A. 05/28/2019 E66.9 Obesity, unspecified Zuleyka Arcanum, P.A. 05/28/2019 Z30.42 Encounter for surveillance of injectable Zuleyka Arcanum, P.A. contraceptive 05/28/2019 Z71.3 Dietary counseling and surveillance Zuleyka Escalante, P.A. 05/28/2019 V25.09 Contraceptive Management Other Zuleyka Escalante, P.A. 05/17/2019 E11.65 Type 2 diabetes mellitus with hyperglycemia Zuleyka Escalante , P.A. 05/17/2019 F31.0 Bipolar disorder, current episode hypomanic Zuleyka Escalante, P.A. 05/17/2019 G89.4 Chronic pain syndrome Zuleyka Escalante, P.A. 05/17/2019 F43.23 Adjustment disorder with mixed anxiety and Zuleyka Alemanle, P.A. depressed mood 05/17/2019 Z79.84 USP (current) use of oral hypoglycemic Zuleyka Escalante , P.A. drugs 05/17/2019 Z13.31 Encounter for screening for depression Zuleyka Escalante, P.A. 05/17/2019 Z68.42 Body mass index (BMI) 45.0-49.9, adult Zuleyka Escalante, P.A. Plan of Treatment Future Appointment(s):09/15/2020 10:30 am - Letha Thomas MD at Main [id number] 2:15 pm - Nurse's Schedule at Main [id number]/13/2019 - Zuleyka Escalante, P.A.E11.65 Type 2 diabetes mellitus with hyperglycemiaReferral:Madiha Sosa MD , Cardiology/Phys/OsteoFollow up:getting microalbumin vjfbtV77.89 Other chest painReferral:Madiha Sosa MD, Cardiology/Phys/[id number] Dizziness and giddinessReferral:Madiha Sosa MD, Cardiology/Phys/DtpwmG33.42 Body mass index (BMI) 45.0-49.9, frygiE13.01 Encounter for general adult medical examination with abnormal xpcwoflmJ35.39 Encounter for other screening for malignant neoplasm of xzqskmA34.4 Encounter for screening for malignant neoplasm of cervix Functional Status Description No Information Available Mental Status Description No Information Available Referrals Refer to Reason for Referral Status Appt Date Madiha Sosa MD Pt with TYpe II diabetes x about 5 yrs, Created controlled, who complains of dizziness intermittentlly through the day, 30 seconds will pass, some days more than others. Nml SR on EKG, orthos L: 98/76, Sit: 126/64, St: 132/76. Pt has had this sxs for years (had not mentioned to us sooner) thought was vertigo. Also w c/o of intermittent LSB region cp, mild [facility] [address] [place] [address] [phone] Jessica Nur pt needs diabetic eye exam [facility] in Closed 00/ Specialty [address] [place] [address] [phone]
--- OUTSIDE RECORDS SUMMARY | 2019-10-30 19:07 | XMS REPORT | Continuity of Care Document ---
:1990 External Reference #:[id number] Author Name Briseida Beaver (transmitted by agent of provider Elias Baker) Address [address] [place] [address] Care Team Providers Name Role Phone HCP given Care Team Information Family Partner Unavailable Madiha Sosa MD - Cardiovascular Care Team Information Family Partner [phone] Disease Problems Active Problems Provider Date Type II [...] Rivera Tanner, 07/08/2019 20mg before meals, by M.D. Tablets mouth twice a day for acid reflux Omeprazole Take 1 Capsule By 30caps R10.13 Rivera Tanner, 07/03/2019 40mg Mouth Every Day For M.D. Capsules DR Dulce Mraia Angel For Pain; appointment needed before next [...] 3 months, injection will be done by [facility] Wrist Splints For CTS Wear each arm [...] tablet before 60tabs Rivera Tanner, 07/04/2019 - Pipe Threading Machine Operator meal up to 2 times M.D. 07/08/2019 75mg a day Tablets Rid Lice Killing Apply Rid shampoo 236ml Rivera Tanner, 05/23/2019 - Shampoo liberally to dry M.D. 07/02/2019 0.33-4% hair, allow to Shampoo tank refinisher hair 10 min, then lather with a little warm water than rinse Trulicity 0.75 mg once 1ml E11.65 Rivera Tanner, 05/17/2019 - weekly x 2 weeks, M.D. 05/28/2019 0.75mg/0.5ML if tolerated, Solution Pen-Inject increase to 1.5 mg once a week Medications Administered in Office Medication SIG Qnty Indications Ordering Provider Date SC/Im Injections Nurse's Schedule 08/27/2019 Injection SC/Im Injections Zuleyka Escalante P.A. 05/28/2019 Injection Depo Provera Injection Nurse's Schedule 03/06/2019 Injection SC/Im Injections Nurse's Schedule 03/06/2019 Injection SC/Im Injections Zuleyka Escalante P.ARobert 12/13/2018 Injection SC/Im Injections Zuleyka Escalante P.A. 09/24/2018 Injection SC/Im Injections Zuleyka Escalante P.ARobert 06/22/2018 Injection Immunizations CPT Code Status Date Vaccine Lot # [id number] Given 05/28/2019 Influenza Virus Vaccine, Quadrivalent, Split, [id number] Preservative Free [id number] Given 06/22/2018 Influenza Virus Vaccine, Quadrivalent, Split, [...] Result H/L Range Note Date Laboratory 09/13/2019 [facility] Cytology SEE RESULT 1 test finding [phone] BELOW Laboratory 09/13/2019 In House Hemoglobin 7.0% test finding A1c Stool Occult 07/06/2019 [facility] Stool Occult SEE RESULT 2 Blood Diag [phone] Blood, Diag BELOW Laboratory 07/06/2019 [facility] Helico Pylori Negative Negative 3 test finding [phone] Antigen- Stool Laboratory 06/30/2019 [facility] Point of Care 208 mg/dL High 70-100 4 test finding [phone] Glucose Laboratory 06/30/2019 [facility] Poc Negative Negative 5 test finding [phone] , Urine Poc Urinalysis 06/30/2019 [facility] Poc Glucose, 2+ Abnormal Negative [phone] Urine Poc Bilirubin, Urine Negative Negative Poc Ketone, Urine Negative Negative Poc Specific [place], Urine 1.020 Normal 1.010-1.030 Poc Blood, Urine Trace-intact Abnormal Negative Poc pH, Urine 5.5 Normal 5-9 Poc Protein, Urine Negative Negative Poc Urobilinogen, Urine 0.2 Negative Poc Nitrite, Urine Negative Negative Poc Leukocytes, Urine Negative Negative Poc Color, Urine Yellow Poc Clarity, Urine Clear 6 Laboratory test finding 05/17/2019 In House Hemoglobin A1c 8.1 1 SEE RESULT BELOW Name: CINDY MORTENSEN : [address]: Zuleyka JONES Acct: [id number] Unit: [id number] AGE: 29 Location: [facility] Re09/13/19 SEX: F Status: REG REF SPEC: [id number] RHINA: 09/13/19-[address]: Zuleyka JONES REQ: [id number] RECD: 09/13/19 STATUS: SOUT _ ORDERED: TP IMAGE ANALYS, HPV/Thin Prep COMMENTS: [id number] FINAL DIAGNOSIS Negative for Intraepithelial lesion or Malignancy HPV RESULTS Date Time Test Result Flag (u) Normal Range 09/13/19 1353 HPV CARRIE RFLX GE Negative Negative The high-risk HPV types detected by the assay include: 16, 18, 31, 33, 35, 39, 45, 51, 52, 56, 58, 59, 66, and 68. SPECIMEN(S) RECEIVED A. Ectocervical/Endocervical CYTOLOGY ADEQUACY Specimen Adequacy: Satisfactory of evaluation Transformation zone component identified CONTINUED ON NEXT PAGE DEPARTMENT OF PATHOLOGY, [facility] [employer] [place], [place] [address] Eduar Zuleta M.D. Director [facility] # [id number] CYTOLOGY PATIENT INFORMATION Patient Information: HPV: High risk HPV RNA testing regardless of pap results. Actual Specimen Date: 09/13/19 LMP If Unknown: Last Menstrual Period Not Given. ?: N Post Menopausal?: N Hysterectomy?: N Signed by and Reported on: TORI Akhtar (ASCP) 1209 This Pap test was evaluated with the assistance of the [employer] Test Imaging System. Due to cytologic findings at the auto driver microscope, comprehensive manual rescreening by a Bushing And Broach Operator may be required. The Pap Smear is a screening test designed to aid in the detection of premalignant and malignant conditions of the uterine cervix. It is not a diagnostic procedure and should not be used as the sole means of detecting cervical cancer. Both false- positive and false- negative reports do occur. Depending on your risk status, a Pap smear should be obtained and evaluated every 1-3 years. END OF REPORT DEPARTMENT OF PATHOLOGY, [facility] [employer] [place], [place] [address] Eduar Zuleta M.D. Director [place] # [id number] 2 SEE RESULT BELOW Name: CINDY MORT[address]EN [address] : [address]: Zuleyka JONES Acct: [id number] Unit: [id number] AGE: 29 Location: [facility] Re07/06/19 SEX: F Status: REG REF SPEC: [id number] RHINA: 07/06/[address]: Zuleyka JONES REQ: [id number] RECD: 07/08/19 STATUS: COMP _ SOURCE: STOOL SPDESC: ORDERED: Demarcus Campos COMMENTS: [id number] Procedure Result Reported Site Stool Occult Blood [...] . END OF REPORT DEPARTMENT OF PATHOLOGY, [address] [place] [address] Eduar Zuleta M.D. Director [facility] # [id number] 3 Test Performed by: [place] [address] Jockey Valet: Dhiraj Arevalo M.D. Ph.D.; CLIA# [id number] 4 Stock Unloader: [id number] 5 Stock Unloader: [id number] Test Disclaimer: Positive bacteria, red blood cells, white blood cells, early , low specific gravity, and other factors may cause false positive or negative results. It is recommended to retest unexpected and borderline results with a serum test when applicable. If is still suspected, please repeat test after 48 to 72 hours. 6 Stock Unloader: [id number] Procedures Date Code Description Status 09/13/2019 00151 Electrocardiogram Complete Completed 08/27/2019 85721 SC/Im Injections Completed 06/13/2019 382439160 Diabetic Retinal Eye Exam Completed 05/28/2019 04533 SC/Im Injections Completed 05/17/2019 85917 Brief Emotional/Behav Assessment W/ Scoring Doc Per Completed Standard Inst 09/24/2018 379718661 Diabetic Foot Exam Completed Medical Devices Description [...] for screening for malignant neoplasm of cervix E66.9 Obesity, unspecified Z79.4 nursing home (current) use of insulin Z79.84 terminal carman (current) use of oral hypoglycemic drugs Office Visit 08/27/2019 2:15p Main Office Nurse's [...] F31.0 Bipolar disorder, current episode hypomanic Z79.84 nursing home (current) use of oral hypoglycemic drugs [...] with mixed anxiety and depressed mood Z79.84 nursing home (current) use of oral hypoglycemic drugs Z13.31 Encounter for screening for depression Z68.42 Body mass index (BMI) 45.0-49.9, adult Assessments Date Code Description Provider 09/13/2019 E11.65 Type 2 diabetes mellitus with hyperglycemia Zuleyka Escalante P.ARobert 09/13/2019 R07.89 Other chest pain Zuleyka Hyde, P.A. 09/13/2019 R42 Dizziness and giddiness Zuleyka Hyde, P.A. 09/13/2019 Z68.42 Body mass index (BMI) 45.0-49.9, adult Zuleyka Hyde, P.A. 09/13/2019 Z00.01 Encounter for general adult medical Zuleyka Hyde, P.A. examination with abnormal findings 09/13/2019 Z12.39 Encounter for other screening for malignant Zuleyka Hyde , P.A. neoplasm of breast 09/13/2019 Z12.4 Encounter for screening for malignant Zuleyka Hyde, P.A. neoplasm of cervix 09/13/2019 E66.9 Obesity, unspecified Zuleyka Hyde, P.A. 09/13/2019 Z79.4 terminal carman (current) use of insulin Zuleyka Hyde, P.A. 09/13/2019 Z79.84 nursing home (current) use of oral hypoglycemic Zuleyka Hyde , P.A. drugs 08/27/2019 Z30.42 Encounter for surveillance of injectable Nurse's Schedule contraceptive 07/03/2019 R10.13 Epigastric pain Rivera Tanner M.D. 07/03/2019 R11.0 Nausea Rivera Tanner M.D. 07/03/2019 E11.65 Type 2 diabetes mellitus with hyperglycemia Rivera Tanner M.D. 07/03/2019 M22.2x1 Bilateral knee pain Rivera Tanner M.D. 07/03/2019 R19.7 Diarrhea, unspecified Rivera Tanner M.D. 05/28/2019 E11.65 Type 2 diabetes mellitus with hyperglycemia Zuleyka Hyde , P.A. 05/28/2019 F31.0 Bipolar disorder, current episode hypomanic Zuleyka Hyde, P.A. 05/28/2019 Z79.84 terminal carman (current) use of oral hypoglycemic Zuleyka Hyde , P.A. drugs 05/28/2019 M22.2x1 Bilateral knee pain Zuleyka Hyde, P.A. 05/28/2019 F43.23 Adjustment disorder with mixed anxiety and Zuleyka Hyde, P.A. depressed mood 05/28/2019 Z23 Encounter for immunization Zuleyka Hyde, P.A. 05/28/2019 E66.9 Obesity, unspecified Zuleyka Hyde, P.A. 05/28/2019 Z30.42 Encounter for surveillance of injectable Zuleyka Hyde, P.A. contraceptive 05/28/2019 Z71.3 Dietary counseling and surveillance Zuleyka Hyde, P.A. 05/28/2019 V25.09 Contraceptive Management Other Zuleyka Hyde, P.A. 05/17/2019 E11.65 Type 2 diabetes mellitus with hyperglycemia Zuleyka Hyde , P.A. 05/17/2019 F31.0 Bipolar disorder, current episode hypomanic Zuleyka Hyde, P.A. 05/17/2019 G89.4 Chronic pain syndrome Zuleyka Hyde, P.A. 05/17/2019 F43.23 Adjustment disorder with mixed anxiety and Zuleyka Hyde, P.A. depressed mood 05/17/2019 Z79.84 nursing home (current) use of oral hypoglycemic Zuleyka Hyde , P.A. drugs 05/17/2019 Z13.31 Encounter for screening for depression Zuleyka Hyde, P.A. 05/17/2019 Z68.42 Body mass index (BMI) 45.0-49.9, adult Zuleyka Hyde, P.A. Plan of Treatment Future Appointment(s):09/15/2020 10:30 am - Letha Thomas MD at Main Rrxtqh61 2:15 pm - Nurse's Schedule at Main Udmfmx0709/13/2019 - Zuleyka Hyde, P.A.E11.65 Type 2 diabetes mellitus with hyperglycemiaReferral:Madiha Sosa MD , Cardiology/Phys/OsteoFollow up:getting microalbumin bybvmZ84.89 Other chest painReferral:Madiha Sosa MD, Cardiology/Phys/SoklsW12 Dizziness and giddinessReferral:Madiha Sosa MD, Cardiology/Phys/AjzmrC56.42 Body mass index (BMI) 45.0-49.9, yuyddF60.01 Encounter for general adult medical examination with abnormal fmjsgxljE08.39 Encounter for other screening for malignant neoplasm of prdlesB67.4 Encounter for screening for malignant neoplasm of kcqpzeT95.9 Obesity, bxvkufgzbauP90.4 terminal carman (current) use of rnnfeveM14.84 nursing home (current) use of oral hypoglycemic drugs Functional Status Description No Information Available Mental Status Description No Information Available Referrals Refer to Reason for Referral Status Appt Date Madiha Sosa MD Pt with TYpe II diabetes x about 5 yrs, Sent controlled, who complains of dizziness intermittentlly through the day, 30 seconds will pass, some days more than others. Nml SR on EKG, orthos L: 98/76, Sit: 126/64, St: 132/76. Pt has had this sxs for years (had not mentioned to us sooner) thought was vertigo. Also w c/o of intermittent LSB region cp, mild Consult and Co-treatment [facility] [address] [place] [address] [phone] Jessica Nur pt needs diabetic eye exam [facility]osed [facility] [address] [place] [address] [phone]
--- OUTSIDE RECORDS SUMMARY | 2019-10-30 19:07 | XMS REPORT | Continuity of Care Document ---
:1990 External Reference #:[id number] Author Name Briseida Beaver (transmitted by agent of provider Elias Baker) Address [address] [place] [address] Care Team Providers Name Role Phone HCP given Care Team Information Captain Room Service Unavailable Madiha Sosa MD - Cardiovascular Care Team Information Captain Room Service [phone] Disease Problems Active Problems Provider Date Type [...] 3 months, injection will be done by [facility] Wrist Splints For CTS Wear [...] tablet before 60tabs Rivera Tanner, 07/04/2019 - Swabber meal up to 2 times M.D. 07/08/2019 75mg a day Tablets Rid Lice Killing Apply Rid shampoo 236ml Rivera Tanner, 05/23/2019 - Shampoo liberally to dry M.D. 07/02/2019 0.33-4% hair, allow to Shampoo perinatal coordinator hair 10 min, then lather with a [...] CPT Code Status Date Vaccine Lot # [id number] Given 05/28/2019 Influenza Virus Vaccine, Quadrivalent, Split, [id number] Preservative Free 58725 Given 06/22/2018 Influenza Virus Vaccine, Quadrivalent, Split, [...] Result H/L Range Note Date Laboratory 09/13/2019 [facility] Cytology SEE RESULT 1 test finding [phone] BELOW Laboratory 09/13/2019 In House Hemoglobin 7.0% test finding A1c Stool Occult 07/06/2019 [facility] Stool Occult SEE RESULT 2 Blood Diag [phone] Blood, Diag BELOW Laboratory 07/06/2019 [facility] Helico Pylori Negative Negative 3 test finding [phone] Antigen- Stool Laboratory 06/30/2019 [facility] Point of Care 208 mg/dL High 70-100 4 test finding [phone] Glucose Laboratory 06/30/2019 [facility] Poc Negative Negative 5 test finding [phone] , Urine Poc Urinalysis 06/30/2019 [facility] Poc Glucose, 2+ Abnormal Negative [phone] Urine Poc Bilirubin, Urine Negative Negative Poc Ketone, Urine Negative Negative Poc Specific [place], Urine 1.020 Normal 1.010-1.030 Poc Blood, Urine [...] : [address]: Zuleyka JONES Acct: [id number] Unit: [id number] AGE: 29 Location: [facility] Re09/13/19 SEX: F Status: REG REF SPEC: [id number] RHINA: 09/13/19-[address]: Zuleyka JONES REQ: [id number] RECD: 09/13/19 STATUS: SOUT _ ORDERED: TP IMAGE ANALYS, HPV/Thin Prep COMMENTS: [id number] FINAL DIAGNOSIS Negative for Intraepithelial lesion or [...] CONTINUED ON NEXT PAGE DEPARTMENT OF PATHOLOGY, [facility] [place], [place] [address] Eduar Zuleta M.D. Director [facility] # [id number] CYTOLOGY PATIENT INFORMATION Patient Information: HPV: High risk HPV RNA testing regardless of pap results. Actual Specimen Date: 09/13/19 LMP If Unknown: Last Menstrual Period Not Given. ?: N Post Menopausal?: N Hysterectomy?: N Signed by and Reported on: TORI Akhtar (ASCP) 1209 This Pap test was evaluated with the assistance of the [employer] Test Imaging System. Due to cytologic findings at the field marketing team leader microscope, comprehensive manual rescreening by a Primary Care Sales Representative may be required. The Pap Smear is [...] years. END OF REPORT DEPARTMENT OF PATHOLOGY, [facility] [place], [place] [address] Eduar Zuleta M.D. Director [facility] # [id number] 2 SEE RESULT BELOW Name: CINDY MORT[address]EN [address] : [address]: Zuleyka JONES Acct: [id number] Unit: [id number] AGE: 29 Location: [facility] Re07/06/19 SEX: F Status: REG REF SPEC: [id number] RHINA: 07/06/[address]: Zuleyka JONES REQ: [id number] RECD: 07/08/19 STATUS: COMP _ SOURCE: STOOL SPDESC: ORDERED: Demarcus Campos COMMENTS: [id number] Procedure Result Reported Site Stool Occult Blood [...] . END OF REPORT DEPARTMENT OF PATHOLOGY, [address] [place] [address] Eduar Zuleta M.D. Director [facility] # [id number] 3 Test Performed by: [place] [address] Hand Lens Polisher: Dhiraj Arevalo M.D. Ph.D.; CLIA# [id number] 4 Jewelry Estimator: [id number] 5 Jewelry Estimator: [id number] Test Disclaimer: Positive bacteria, red blood cells, white blood cells, early , low specific gravity, and other factors may cause false positive or negative results. It is recommended to retest unexpected and borderline results with a serum test when applicable. If is still suspected, please repeat test after 48 to 72 hours. 6 Jewelry Estimator: [id number] Procedures Date Code Description Status 09/13/2019 95510 Electrocardiogram Complete Completed 08/27/2019 56868 SC/Im Injections Completed 06/13/2019 885147583 Diabetic Retinal Eye Exam Completed 05/28/2019 89606 SC/Im Injections Completed 05/17/2019 78870 Brief Emotional/Behav Assessment W/ Scoring Doc Per Completed Standard Inst 09/24/2018 076148194 Diabetic Foot Exam Completed Medical Devices Description [...] neoplasm of cervix E66.9 Obesity, unspecified Z79.4 prison (current) use of insulin Z79.84 behaviorist (current) use of oral hypoglycemic drugs Office Visit 08/27/2019 2:15p Main Office Nurse's Z30.42 Encounter for Schedule surveillance of injectable contraceptive Office Visit 07/03/2019 4:45p Main Office Ciro, R10.13 Epigastric pain Herrera Stafford R11.0 Nausea E11.65 Type 2 diabetes mellitus with hyperglycemia M22.2x1 Patellofemoral disorders, right knee R19.7 Diarrhea, unspecified Office Visit 05/28/2019 9:20a Main Office Zuleyka Escalante, E11.65 Type 2 diabetes P.A. mellitus with hyperglycemia F31.0 Bipolar disorder, current episode hypomanic Z79.84 prison (current) use of oral hypoglycemic drugs M22.2x1 [...] with mixed anxiety and depressed mood Z79.84 prison (current) use of oral hypoglycemic drugs Z13.31 Encounter for screening for depression Z68.42 Body mass index (BMI) 45.0-49.9, adult Assessments Date Code Description Provider 09/13/2019 E11.65 Type 2 diabetes mellitus with hyperglycemia Zuleyka Escalante P.ARobert 09/13/2019 R07.89 Other chest pain Zuleyka [place], P.A. 09/13/2019 R42 Dizziness and giddiness Zuleyka [place], P.A. 09/13/2019 Z68.42 Body mass index (BMI) 45.0-49.9, adult Zuleyka [place], P.A. 09/13/2019 Z00.01 Encounter for general adult medical Zuleyka [place], P.A. examination with abnormal findings 09/13/2019 Z12.39 Encounter for other screening for malignant Zuleyka [place] , P.A. neoplasm of breast 09/13/2019 Z12.4 Encounter for screening for malignant Zuleyka [place], P.A. neoplasm of cervix 09/13/2019 E66.9 Obesity, unspecified Zuleyka [place], P.A. 09/13/2019 Z79.4 behaviorist (current) use of insulin Zuleyka [place], P.A. 09/13/2019 Z79.84 prison (current) use of oral hypoglycemic Zuleyka [place] , P.A. drugs 08/27/2019 Z30.42 Encounter for surveillance of injectable Nurse's Schedule contraceptive 07/03/2019 R10.13 Epigastric pain Rivera Tanner M.D. 07/03/2019 R11.0 Nausea Rivera Tanner M.D. 07/03/2019 E11.65 Type 2 diabetes mellitus with hyperglycemia Rivera Tanner M.D. 07/03/2019 M22.2x1 Bilateral knee pain Rivera Tanner M.D. 07/03/2019 R19.7 Diarrhea, unspecified Rivera Tanner M.D. 05/28/2019 E11.65 Type 2 diabetes mellitus with hyperglycemia Zuleyka [place] , P.A. 05/28/2019 F31.0 Bipolar disorder, current episode hypomanic Zuleyka [place], P.A. 05/28/2019 Z79.84 behaviorist (current) use of oral hypoglycemic Zuleyka [place] , P.A. drugs 05/28/2019 M22.2x1 Bilateral knee pain Zuleyka [place], P.A. 05/28/2019 F43.23 Adjustment disorder with mixed anxiety and Zuleyka [place], P.A. depressed mood 05/28/2019 Z23 Encounter for immunization Zuleyka [place], P.A. 05/28/2019 E66.9 Obesity, unspecified Zuleyka [place], P.A. 05/28/2019 Z30.42 Encounter for surveillance of injectable Zuleyka [place], P.A. contraceptive 05/28/2019 Z71.3 Dietary counseling and surveillance Zuleyka Escalante, P.A. 05/28/2019 V25.09 Contraceptive Management Other Zuleyka Escalante, P.A. 05/17/2019 E11.65 Type 2 diabetes mellitus with hyperglycemia Zuleyka [place] , P.A. 05/17/2019 F31.0 Bipolar disorder, current episode hypomanic Zuleyka [place], P.A. 05/17/2019 G89.4 Chronic pain syndrome Zuleyka [place], P.A. 05/17/2019 F43.23 Adjustment disorder with mixed anxiety and Zuleyka [place], P.A. depressed mood 05/17/2019 Z79.84 prison (current) use of oral hypoglycemic Zuleyka [place] , P.A. drugs 05/17/2019 Z13.31 Encounter for screening for depression Zuleyka [place], P.A. 05/17/2019 Z68.42 Body mass index (BMI) 45.0-49.9, adult Zuleyka [place], P.A. Plan of Treatment Future Appointment(s):09/15/2020 10:30 am - Letha Thomas MD at Main Bytjtl23 2:15 pm - Nurse's Schedule at Main Omeonl6302/28/2019 - Zuleyka Escalante, P.A.E11.65 Type 2 diabetes mellitus with hyperglycemiaFollow up:A1C 7.1%: well qemfnfumicS70.0 Bipolar disorder, current episode hypomanicNew Medication: Latuda 40 mg - 1 qhsComments:As pt feels comfortable here and appears stable with her psychiatric concerns, I agreed to manage ptat this time. She stated understanding that if issues became more complicated again that we might have to return to [facility]. Overall pt appears to be doing well.G89.4 Chronic pain syndromeFollow up:alternative if we cannot cover the Diclofenac gel is: Aspercreme with aspirin in it (not lidocaine)either the brand name or the uiteqgwY73.23 Adjustment disorder with mixed anxiety and depressed moodNew Medication:Latuda 40 mg - 1 qhsComments:Will likely need a PA for the Latuda which she has taken for while but other another fqhaimydnjG62.84 behaviorist ( current) use of oral hypoglycemic feaoaY55.899 Other install technician (current) drug zlgrckvS29.2x1 Bilateral knee painComments:discussed that likely is general pain from chr excess pressure on knees, pt agreed and weight loss ozwhhpzvvmP24.84 Generalized abdominal painComments:some does seem to be epigastric, will start omeprazole and see if changesFollow up:will monitor, no pain today, return when active Functional Status Description No Information Available Mental [...] LSB region cp, mild Consult and Co-treatment [facility] [address] [place] [address] [phone] Jessica Nur pt needs diabetic eye exam [facility] [address] [place] [address] [phone]
--- OUTSIDE RECORDS SUMMARY | 2019-10-30 19:07 | XMS REPORT | Continuity of Care Document ---
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 Wrist Splints For CTS Wear each [...] tablet before 60tabs Rivera Tanner, 07/04/2019 - Slip Filler meal up to 2 times M.D. 07/08/2019 75mg a day Tablets Rid Lice Killing Apply Rid shampoo 236ml Rivera Tanner, 05/23/2019 - Shampoo liberally to dry M.D. 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 hair 10 min, then lather with a [...] CPT Code Status Date Vaccine Lot # [id number] Given 05/28/2019 Influenza Virus Vaccine, Quadrivalent, Split, 24K35 Preservative Free 54226 Given 06/22/2018 Influenza Virus Vaccine, Quadrivalent, Split, [...] Result H/L Range Note Date Laboratory 09/13/2019 [facility] Cytology SEE RESULT 1 test finding [phone] BELOW Laboratory 09/13/2019 In House Hemoglobin 7.0% test finding A1c Stool Occult 07/06/2019 [facility] Stool Occult SEE RESULT 2 Blood Diag [phone] Blood, Diag BELOW Laboratory 07/06/2019 [facility] Helico Pylori Negative Negative 3 test finding [phone] Antigen- Stool Laboratory 06/30/2019 [facility] Point of Care 208 mg/dL High 70-100 4 test finding [phone] Glucose Laboratory 06/30/2019 [facility] Poc Negative Negative 5 test finding [phone] , Urine Poc Urinalysis 06/30/2019 [facility] Poc Glucose, 2+ Abnormal Negative [phone] Urine Poc Bilirubin, Urine Negative Negative Poc Ketone, Urine Negative Negative Poc Specific [place], Urine 1.020 Normal 1.010-1.030 Poc Blood, Urine [...] : [address]: Zuleyka JONES Acct: [id number] Unit: [id number] AGE: 29 Location: [facility] Re09/13/19 SEX: F Status: REG REF SPEC: [id number] RHINA: 09/13/19-[address]: Zuleyka JONES REQ: [id number] RECD: 09/13/19 STATUS: SOUT _ ORDERED: TP IMAGE ANALYS, HPV/Thin Prep COMMENTS: [id number] FINAL DIAGNOSIS Negative for Intraepithelial lesion or [...] CONTINUED ON NEXT PAGE DEPARTMENT OF PATHOLOGY, [facility] [employer] [place], [place] [address] Eduar Zuleta M.D. Director [facility] # [id number] CYTOLOGY PATIENT INFORMATION Patient Information: HPV: High risk HPV RNA testing regardless of pap results. Actual Specimen Date: 09/13/19 LMP If Unknown: Last Menstrual Period Not Given. ?: N Post Menopausal?: N Hysterectomy?: N Signed by and Reported on: TORI Akhtar (ASCP) 1206 This Pap test was evaluated with the assistance of the onefinestayp Test Imaging System. Due to cytologic findings at the digital circuit designer microscope, comprehensive manual rescreening by a Assurance Senior Manager Insurance may be required. The Pap Smear is [...] years. END OF REPORT DEPARTMENT OF PATHOLOGY, [facility] [employer] [place], [place] [address] Eduar Zuleta M.D. Director [facility] # [id number] 2 SEE RESULT BELOW Name: [address] : [address]: Zuleyka JONES Acct: [id number] Unit: [id number] AGE: 29 Location: [facility] Re07/06/19 SEX: F Status: REG REF SPEC: [id number] RHINA: 07/06/[address]: Zuleyka JONES REQ: [id number] RECD: 07/08/19 STATUS: COMP _ SOURCE: STOOL SPDESC: ORDERED: Demarcus Campos COMMENTS: [id number] Procedure Result Reported Site Stool Occult Blood [...] . END OF REPORT DEPARTMENT OF PATHOLOGY, [address] [place] [address] Eduar Zuleta M.D. Director [facility] # [id number] 3 Test Performed by: [place] [address] Ekg Tech: Dhiraj Arevalo M.D. Ph.D.; CLIA# [id number] 4 Microsoft Infrastructure Consultant: [id number] 5 [employer] Infrastructure Consultant: [id number] Test Disclaimer: Positive bacteria, red blood cells, white blood cells, early , low specific gravity, and other factors may cause false positive or negative results. It is recommended to retest unexpected and borderline results with a serum test when applicable. If is still suspected, please repeat test after 48 to 72 hours. 6 [employer] Infrastructure Consultant: [id number] Procedures Date Code Description Status 09/13/2019 80720 Electrocardiogram Complete Completed 08/27/2019 97770 SC/Im Injections Completed 06/13/2019 858408253 Diabetic Retinal Eye Exam Completed 05/28/2019 83783 SC/Im Injections Completed 05/17/2019 98798 Brief Emotional/Behav Assessment W/ Scoring Doc Per Completed Standard Inst 09/24/2018 948472209 Diabetic Foot Exam Completed Medical Devices Description [...] neoplasm of cervix E66.9 Obesity, unspecified Z79.4 care home (current) use of insulin Z79.84 termination clerk (current) use of oral hypoglycemic drugs Office [...] with mixed anxiety and depressed mood Z79.84 care home (current) use of oral hypoglycemic drugs Z13.31 Encounter for screening for depression Z68.42 Body mass index (BMI) 45.0-49.9, adult Assessments Date Code Description Provider 09/13/2019 E11.65 Type 2 diabetes mellitus with hyperglycemia Zuleyka Escalante P.ARobert 09/13/2019 R07.89 Other chest pain Zuleyka Lotus, P.A. 09/13/2019 R42 Dizziness and giddiness Zuleyka Lotus, P.A. 09/13/2019 Z68.42 Body mass index (BMI) 45.0-49.9, adult Zuleyka Lotus, P.A. 09/13/2019 Z00.01 Encounter for general adult medical Zuleyka Lotus, P.A. examination with abnormal findings 09/13/2019 Z12.39 Encounter for other screening for malignant Zuleyka Lotus , P.A. neoplasm of breast 09/13/2019 Z12.4 Encounter for screening for malignant Zuleyka Lotus, P.A. neoplasm of cervix 09/13/2019 E66.9 Obesity, unspecified Zuleyka Lotus, P.A. 09/13/2019 Z79.4 termination clerk (current) use of insulin Zuleyka Lotus, P.A. 09/13/2019 Z79.84 care home (current) use of oral hypoglycemic Zuleyka Lotus , P.A. drugs 08/27/2019 Z30.42 Encounter for surveillance of injectable Nurse's Schedule contraceptive 07/03/2019 R10.13 Epigastric pain Rivera Tanner M.D. 07/03/2019 R11.0 Nausea Rivera Tanner M.D. 07/03/2019 E11.65 Type 2 diabetes mellitus with hyperglycemia Rivera Tanner M.D. 07/03/2019 M22.2x1 Bilateral knee pain Rivera Tanner M.D. 07/03/2019 R19.7 Diarrhea, unspecified Rivera Tanner M.D. 05/28/2019 E11.65 Type 2 diabetes mellitus with hyperglycemia Zuleyka Lotus , P.A. 05/28/2019 F31.0 Bipolar disorder, current episode hypomanic Zuleyka Lotus, P.A. 05/28/2019 Z79.84 termination clerk (current) use of oral hypoglycemic Zuleyka Lotus , P.A. drugs 05/28/2019 M22.2x1 Bilateral knee pain Zuleyka Lotus, P.A. 05/28/2019 F43.23 Adjustment disorder with mixed anxiety and Zuleyka Lotus, P.A. depressed mood 05/28/2019 Z23 Encounter for immunization Zuleyka Lotus, P.A. 05/28/2019 E66.9 Obesity, unspecified Zuleyka Lotus, P.A. 05/28/2019 Z30.42 Encounter for surveillance of injectable Zuleyka Lotus, P.A. contraceptive 05/28/2019 Z71.3 Dietary counseling and surveillance Zuleyka Lotus, P.A. 05/28/2019 V25.09 Contraceptive Management Other Zuleyka Lotus, P.A. 05/17/2019 E11.65 Type 2 diabetes mellitus with hyperglycemia Zuleyka Lotus , P.A. 05/17/2019 F31.0 Bipolar disorder, current episode hypomanic Zuleyka Lotus, P.A. 05/17/2019 G89.4 Chronic pain syndrome Zuleyka Lotus, P.A. 05/17/2019 F43.23 Adjustment disorder with mixed anxiety and Zuleyka Lotus, P.A. depressed mood 05/17/2019 Z79.84 care home (current) use of oral hypoglycemic Zuleyka Lotus , P.A. drugs 05/17/2019 Z13.31 Encounter for screening for depression Zuleyka Lotus, P.A. 05/17/2019 Z68.42 Body mass index (BMI) 45.0-49.9, adult Zuleyka Lotus, P.A. Plan of Treatment Future Appointment(s):09/15/2020 10:30 am - Letha Thomas MD at Main Ajoutu22 2:15 pm - Nurse's Schedule at Main Iifsal0309/13/2019 - Zuleyka Lotus, P.A.E11.65 Type 2 diabetes mellitus with hyperglycemiaReferral:Madiha Sosa MD , Cardiology/Phys/OsteoFollow up:getting microalbumin pzuijZ10.89 Other chest painReferral:Madiha Sosa MD, Cardiology/Phys/LpqapQ50 Dizziness and giddinessReferral:Madiha Sosa MD, Cardiology/Phys/AaacbQ59.42 Body mass index (BMI) 45.0-49.9, rozdbF16.01 Encounter for general adult medical examination with abnormal lxrmdgypW27.39 Encounter for other screening for malignant neoplasm of fmvalsP99.4 Encounter for screening for malignant neoplasm of vljanrQ94.9 Obesity, rojnwwxqlwsW35.4 termination clerk (current) use of vbhhhbaK20.84 care home (current) use of oral hypoglycemic [...] LSB region cp, mild Consult and Co-treatment [facility] [address] [place] [address] [phone] Jessica Nur pt needs diabetic eye exam Assume Management in Closed Specialty [address] [place] [address] [phone]
--- OUTSIDE RECORDS SUMMARY | 2019-10-30 19:07 | XMS REPORT | Continuity of Care Document ---
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 07/08/2019 75mg a day Tablets Rid Lice Killing Apply Rid shampoo 236ml Rivera Tanner, 05/23/2019 - Shampoo liberally to dry M.D. 07/02/2019 0.33-4% hair, allow to Shampoo health technician hearing hair 10 min, then lather with a [...] CPT Code Status Date Vaccine Lot # 53791 Given 05/28/2019 Influenza Virus Vaccine, Quadrivalent, Split, 24K35 Preservative Free 67727 Given 06/22/2018 Influenza Virus Vaccine, Quadrivalent, Split, [...] Result H/L Range Note Date Laboratory 09/13/2019 [facility] Cytology SEE RESULT 1 test finding [phone] BELOW Laboratory 09/13/2019 In House Hemoglobin 7.0% test finding A1c Stool Occult 07/06/2019 [facility] Stool Occult SEE RESULT 2 Blood Diag [phone] Blood, Diag BELOW Laboratory 07/06/2019 [facility] Helico Pylori Negative Negative 3 test finding [phone] Antigen- Stool Laboratory 06/30/2019 [facility] Point of Care 208 mg/dL High 70-100 4 test finding [phone] Glucose Laboratory 06/30/2019 [facility] Poc Negative Negative 5 test finding [phone] , Urine Poc Urinalysis 06/30/2019 [facility] Poc Glucose, 2+ Abnormal Negative [phone] Urine Poc Bilirubin, Urine Negative Negative Poc Ketone, Urine Negative Negative Poc Specific [place], Urine 1.020 Normal 1.010-1.030 Poc Blood, Urine [...] : [address]: Zuleyka JONES Acct: [id number] Unit: [id number] AGE: 29 Location: [facility] Re09/13/19 SEX: F Status: REG REF SPEC: [id number] RHINA: 09/13/19-[address]: Zuleyka JONES REQ: [id number] RECD: 09/13/19 STATUS: SOUT _ ORDERED: TP IMAGE ANALYS, HPV/Thin Prep COMMENTS: [id number] FINAL DIAGNOSIS Negative for Intraepithelial lesion or [...] ON NEXT PAGE DEPARTMENT OF PATHOLOGY, [facility] [employer] [place], [place] [address] Eduar Zuleta M.D. Director [facility] # [id number] CYTOLOGY PATIENT INFORMATION Patient Information: HPV: High risk HPV RNA testing regardless of pap results. Actual Specimen Date: 09/13/19 LMP If Unknown: Last Menstrual Period Not Given. ?: N Post Menopausal?: N Hysterectomy?: N Signed by and Reported on: TORI Akhtar (ASCP) 1203 This Pap test was evaluated with the assistance of the [employer] Wind Powerp Test Imaging System. Due to cytologic findings at the director of home care hospice microscope, comprehensive manual rescreening by a Guide Dog Mobility Instructor may be required. The Pap Smear is [...] END OF REPORT DEPARTMENT OF PATHOLOGY, [facility] [employer] [place], [place] [address] Eduar Zuleta M.D. Director [facility] # [id number] 2 SEE RESULT BELOW Name: [address]INDY [address] : [address]: Zuleyka JONES Acct: [id number] Unit: [id number] AGE: 29 Location: [facility] Re07/06/19 SEX: F Status: REG REF SPEC: [id number] RHINA: 07/06/[address]: Zuleyka JONES REQ: [id number] RECD: 07/08/19 STATUS: COMP _ SOURCE: STOOL SPDESC: ORDERED: Demarcus Campos COMMENTS: [id number] Procedure Result Reported Site Stool Occult Blood [...] . END OF REPORT DEPARTMENT OF PATHOLOGY, [address] [place] [address] Eduar Zuleta M.D. Director [facility] # [id number] 3 Test Performed by: [place] [address] Box Bender: Dhiraj Arevalo M.D. Ph.D.; CLIA# [id number] 4 Emt Intermediate: [id number] 5 Emt Intermediate: [id number] Test Disclaimer: Positive bacteria, red blood cells, white blood cells, early , low specific gravity, and other factors may cause false positive or negative results. It is recommended to retest unexpected and borderline results with a serum test when applicable. If is still suspected, please repeat test after 48 to 72 hours. 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 09/13/2019 R42 Dizziness and giddiness Zuleyka [place], P.A. 09/13/2019 Z68.42 Body mass index (BMI) 45.0-49.9, adult Zuleyka [place], P.A. 09/13/2019 Z00.01 Encounter for general adult medical Zuleyka [place], P.A. examination with abnormal findings 09/13/2019 Z12.39 Encounter for other screening for malignant Zuleyka [place] , P.A. neoplasm of breast 09/13/2019 Z12.4 Encounter for screening for malignant Zuleyka [place], P.A. neoplasm of cervix 09/13/2019 E66.9 Obesity, unspecified Zuleyka [place], P.A. 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 09/13/2019 Z79.84 longterm (current) use of oral hypoglycemic Zuleyka [place] , P.A. drugs 08/27/2019 Z30.42 Encounter for surveillance of injectable Nurse's Schedule contraceptive 07/03/2019 R10.13 Epigastric pain Rivera Tanner M.D. 07/03/2019 R11.0 Nausea Rivera Tanner M.D. 07/03/2019 E11.65 Type 2 diabetes mellitus with hyperglycemia Rivera Tanner M.D. 07/03/2019 M22.2x1 Bilateral knee pain Rivera Tanner M.D. 07/03/2019 R19.7 Diarrhea, unspecified Rivera Tanner M.D. 05/28/2019 E11.65 Type 2 diabetes mellitus with hyperglycemia Zuleyka [place] , P.A. 05/28/2019 F31.0 Bipolar disorder, current episode hypomanic Zuleyka [place], P.A. 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 drugs 05/28/2019 M22.2x1 Bilateral knee pain Zuleyka [place], P.A. 05/28/2019 F43.23 Adjustment disorder with mixed anxiety and Zuleyka [place], P.A. depressed mood 05/28/2019 Z23 Encounter for immunization Zuleyka [place], P.A. 05/28/2019 E66.9 Obesity, unspecified Zuleyka [place], P.A. 05/28/2019 Z30.42 Encounter for surveillance of injectable Zuleyka [place], P.A. contraceptive 05/28/2019 Z71.3 Dietary counseling and surveillance Zuleyka Escalante, P.A. 05/28/2019 V25.09 Contraceptive Management Other Zuleyka Escalante, P.A. 05/17/2019 E11.65 Type 2 diabetes mellitus with hyperglycemia Zuleyka [place] , P.A. 05/17/2019 F31.0 Bipolar disorder, current episode hypomanic Zuleyka [place], P.A. 05/17/2019 G89.4 Chronic pain syndrome Zuleyka [place], P.A. 05/17/2019 F43.23 Adjustment disorder with mixed anxiety and Zuleyka [place], P.A. depressed mood 05/17/2019 Z79.84 longterm (current) use of oral hypoglycemic Zuleyka [place] , P.A. drugs 05/17/2019 Z13.31 Encounter for screening for depression Zuleyka [place], P.A. 05/17/2019 Z68.42 Body mass index (BMI) 45.0-49.9, adult Zuleyka [place], P.A. Plan of Treatment Future Appointment(s):09/15/2020 10:30 am - Letha Thomas MD at Main Baxcsh41 2:15 pm - Nurse's Schedule at Main Zcxihb1102/28/2019 - Zuleyka Escalante, P.A.E11.65 Type 2 diabetes mellitus with hyperglycemiaFollow up:A1C 7.1%: well lcgnzpiopwB78.0 Bipolar disorder, current episode hypomanicNew Medication: Latuda 40 mg - 1 qhsComments:As pt feels comfortable here and appears stable with her psychiatric concerns, I agreed to manage ptat this time. She stated understanding that if issues became more complicated again that we might have to return to COUNTS [facility] BEDS AT [facility]. Overall pt appears to be doing well.G89.4 Chronic pain syndromeFollow up:alternative if we cannot cover the Diclofenac gel is: Aspercreme with aspirin in it (not lidocaine)either the brand name or the bvgjuboV62.23 Adjustment disorder with mixed anxiety and depressed moodNew Medication:Latuda 40 mg - 1 qhsComments:Will likely need a PA for the Latuda which she has taken for while but other another yqfplxrpsnG38.84 vermin exterminator ( current) use of oral hypoglycemic cglvxZ43.899 Other long chain quiller tender (current) drug bfvfyfjG84.2x1 Bilateral knee painComments:discussed that likely is general pain from chr excess pressure on knees, pt agreed and weight loss sjsarifotkE01.84 Generalized abdominal painComments:some does seem to be [...] LSB region cp, mild Consult and Co-treatment [facility] [address] [place] [address] [phone] Jessica Nur pt needs diabetic eye exam Assume Management in Closed Specialty [address] [place] [address] [phone]
--- OUTSIDE RECORDS SUMMARY | 2019-10-30 19:07 | XMS REPORT ---
:1990 Author Organization [facility] Care Team Providers Name Role Phone Susana Washington Primary Care Physician Unavailable Allergies, Adverse Reactions, Alerts Allergy Code CodeSystem Reaction Severity Criticality Status Start Substance Date Moderate Medications Medication Medication Medication Start Stop Route Dose Status Fill Code CodeSystem Date Date Instructions fluoxetine 952363 RxNorm 2018-12 oral 40 mg 1 active Take 1 -30 7-29 capsule capsule once once a a day for 30 day day(s) Latuda 5171313 RxNorm 2018-12 oral 60 mg active for 30 -30 7-29 tablet day(s) hydroxyzine 331342 RxNorm 2018-12 oral 25 mg 1 active Take 1 tablet HCl -30 7-29 tablet four times a four day as needed times a for 30 day(s) day Problems Problem Name Code CodeSystem Alternate Alternate Start End Status Narrative Code CodeSystem Date Date Bipolar 32972591 SNOMED-CT Active affective 3-22 disorder, unspecified Bipolar 45555092 SNOMED-CT Active affective 3-22 disorder, unspecified Bipolar 23613258 SNOMED-CT Active affective 3-22 disorder, unspecified Social 16979838 SNOMED-CT Active phobia, 4-02 unspecified 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, unspecified Post-traumat 10506148 SNOMED-CT 0 Active ic stress 4-02 disorder, unspecified Bipolar 20705942 SNOMED-CT Active affective 3-22 disorder, unspecified Social 37882595 SNOMED-CT 0 Active phobia, 4-02 unspecified Bipolar 37144585 SNOMED-CT 0 Active affective 3-22 disorder, unspecified Relevant diagnostic tests/laboratory data Narrative No Information Procedures Procedure Code CodeSystem Target Date of Status Service Device Device Device Name Site Procedure Delivery Code Name UID Location Psychotherap 604143 SNOMED-CT () 2019-08-12 complete Mental y, 45 04 d Health- minutes with [place] patient [address], [id number] Office [place] 973096 SNOMED-CT () 2019-08-09 complete Mental other 7 d Health- outpatient [place] visit for [address], [facility], established 476299325 patient, [id number] which requires at least 2 of these 3 crews components: An expanded problem focused history; An expanded problem focused examination; Medical decision making of low Office or 763770 SNOMED-CT () 2019-07-10 complete Mental other 8 d Health- outpatient Neftali visit for [address], [facility], established 155634019 patient, [id number] which requires at least 2 of these 3 crews components: A detailed history; A detailed examination; Medical decision making of moderate complexity. Counseling and/o SNOMED-CT () 2019-01-15 complete Mental d Health- [address], [id number] 1238005627 SNOMED-CT () 2019-09-20 complete Mental d Health- [place], [id number] SNOMED-CT () 2019-01-15 complete Mental d Health- [address], [id number] SNOMED-CT () 2019-01-15 complete Mental d Health- [place], [id number] [id number] SNOMED-CT () 2019-01-15 complete Mental d Health- [address], [address]121625[address] 6459242695 SNOMED-CT () 2019-01-15 complete Mental d Health- [address], 326[address]173 1390817119 SNOMED-CT () 2019-01-15 complete Mental d Health- [address], [id number] 0118339331 SNOMED-CT () 2019-01-15 complete Mental d [facility] [address] [place], [place], [id number] Encounters/Encounter Diagnoses Encounter Name Encounter Diagnosis Diagnosis Diagnosis Date of Service Code Code Name CodeSystem Diagnosis Delivery Location [facility] [address] [id number] 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
[2019-10-30 19:45] VITALS: BP 145/83
[2019-10-30 20:06] LABS: Influenza B Molecular POSITIVE (Negative)
--- NOTE | 2019-10-30 20:27 | UC ---
FLU HPI - HPI Summary HPI Summary: 29-year-old female comes in with a chief complaint influenza-like symptoms for 4 days. She has had chills headache body aches and felt ill. Ibuprofen has helped with her symptoms. Also has a cough and a sore throat. - History of Current Complaint Chief Complaint: UCGeneralIllness Stated Complaint: ST/COUGH Time Seen by Provider: 10/30/19 20:10 Hx Last Menstrual Period: Depo Provera Pain Intensity: 0 - Allergy/Home Medications Allergies/Adverse Reactions: Allergies Allergy/AdvReac Type Severity Reaction Status Date / Time divalproex sodium Allergy Swelling Verified 10/30/19 19:45 [From Depakote] Of Face,Lips,& Throat ziprasidone [From Geodon] Allergy Swelling Verified 10/30/19 19:45 Of Face,Lips,& Throat seasonal Allergy Itching Uncoded 10/30/19 19:45 Home Medications: Home Medications Gabapentin 300 mg PO TID 10/30/19 [History Confirmed 10/30/19] Venlafaxine HCl 75 mg PO DAILY 10/30/19 [History Confirmed 10/30/19] Venlafaxine HCl [Effexor XR-] 37.5 mg PO DAILY 10/30/19 [History Confirmed 10/30] PMH/Surg Hx/FS Hx/Imm Hx Previously Healthy: Yes Endocrine History: Diabetes Cardiovascular History: Hypertension Other History Of: Negative For: HIV, Hepatitis B, Hepatitis C - Surgical History Surgical History: Yes Surgery Procedure, Year, and Place: 2 past C-sections 2007 and 2009, tubal in 2011. - Family History Known Family History: Positive: None - denies Negative: Seizure Disorder, Blood Disorder - Social History Alcohol Use: None Substance Use Type: None Smoking Status (MU): Never Smoked Tobacco - Immunization History Most Recent Influenza Vaccination: none Most Recent Tetanus Shot: unable to recall Most Recent Pneumonia Vaccination: N/A Review of Systems All Other Systems Reviewed And Are Negative: Yes Constitutional: Positive: Chills, Other - SEE HPI Skin: Positive: Negative Eyes: Positive: Negative ENT: Positive: Sore Throat, Nasal Discharge Respiratory: Positive: Cough, Other - SEE HPI Cardiovascular: Positive: Negative Gastrointestinal: Positive: Negative Motor: Positive: Negative Neurovascular: Positive: Negative Musculoskeletal: Positive: Myalgia Neurological/Mental Status: Positive: Headache Psychological: Positive: Negative Is Patient Immunocompromised?: No Physical Exam Triage Information Reviewed: Yes Appearance: No Pain Distress, Well-Nourished, Ill-Appearing - MILD Vital Signs: Initial Vital Signs Temp 97.2 F 10/30/19 19:42 Pulse 102 10/30/19 19:42 Resp 18 10/30/19 19:42 BP 145/83 10/30/19 19:42 Pulse Ox 99 10/30/19 19:42 Vital Signs Reviewed: Yes Eye Exam: Normal Eyes: Positive: Conjunctiva Clear ENT: Positive: Pharyngeal erythema, Nasal congestion, Nasal drainage, TMs normal Neck: Positive: Supple Respiratory: Positive: Lungs clear, Normal breath sounds, No respiratory distress Cardiovascular: Positive: RRR Musculoskeletal: Positive: Strength Intact, ROM Intact Neurological: Positive: Alert, Muscle Tone Normal Psychological: Positive: Normal Response To Family, Age Appropriate Behavior Skin Exam: Normal Flu Course/Dx - Differential Dx/Diagnosis Provider Diagnosis: Influenza Discharge ED - Sign-Out/Discharge Documenting (check all that apply): Patient Departure All imaging exams completed and their final reports reviewed: No Studies - Discharge Plan Condition: Stable Disposition: HOME Prescriptions: Ibuprofen TAB* [Motrin TAB* 600 MG] 600 mg PO Q6H PRN #30 tab PRN Reason: Mild Pain Or Temp > 100.4 Patient Education Materials: Influenza (ED) Referrals: Elias Baker DO [Primary Care Provider] - Additional Instructions: FOLLOW UP WITH YOUR DOCTOR IF NOT COMPLETELY IMPROVED. GET REEVALUATED SOONER IF NOT IMPROVED OR WORSE OR ANY QUESTIONS OR CONCERNS. - Billing Disposition and Condition Condition: STABLE Disposition: Home
== END 2019-10-30 20:43 | disposition home or self-care (01) ==
LOC: UCCORT 18:12
DX: J11.1 Influenza due to unidentified influenza virus with other respiratory manifestations (principal); I10 Essential (primary) hypertension; E11.9 Type 2 diabetes mellitus without complications; Z88.8 Allergy status to other drugs, medicaments and biological substances; Z91.09 Other allergy status, other than to drugs and biological substances
CPT/HCPCS: 87651; 99212; G0463